=== PATIENT | female | born 1985 | race Caucasian/White ===

== ENCOUNTER 2021-06-18 09:11 | Outpatient (CLI) | payer OTHER, SELFPAY ==
[2021-06-18 10:13] LABS: Beta HCG Quantitative < 2.39 mIU/ML
[2021-06-21 12:12] LABS: Progesterone 59.5 ng/mL (***)
== END 2021-06-18 09:12 | disposition home or self-care (01) ==
LOC: ANHLAB 09:27
DX: Z32.00 Encounter for pregnancy test, result unknown (principal)
CPT/HCPCS: 36415; 84144; 84702

== ENCOUNTER 2022-08-25 15:37 | Inpatient (IN) | payer OTHER, SELFPAY ==
[2022-08-25] VITALS (14 sets, daily range): BP systolic 121–150; BP diastolic 66–95; PULSE 63–79; BMI 31.4
[2022-08-25] MEDS: DINOPROSTONE 10 MG VAG INSERT VAGINAL (18:00)
[2022-08-25] MEDS: LACTATED RINGERS 1,000 ML 125 ML IV CONT (18:10)
[2022-08-25] MEDS: AMPICILLIN 2 GM/NS 100 ML 2 GM/100 ML BAG IVPB (18:10)
[2022-08-25 19:49] LABS: Basophils Percent Auto 0.3 % (0.2-1.2); Eosinophils Absolute Auto 0.1 K/mm3 (0-0.3); Eosinophils Percent Auto 1.3 % (0-4.4); Hematocrit 34.7 % (37.0-47.0); Immature Granulocyte Absolute 0.04 K/mm3 (0.00-0.031); Immature Granulocyte Percent A 0.5 % (0-0.5); Lymphocytes Absolute Auto 1.49 K/mm3 (0.9-3.2); Lymphocytes Percent Auto 19.6 % (18.3-44.2); Mean Corpuscular HGB Conc 34.6 g/dl (32-36); Mean Corpuscular Hemoglobin 30.5 pg (26-34); Mean Corpuscular Volume 88.3 fl (80-100); Mean Platelet Volume 11.7 fl (7.4-10.4); Monocytes Absolute Auto 0.6 K/mm3 (0.1-0.6); Monocytes Percent Auto 7.5 % (2.6-8.5); Neutrophils Absolute Auto 5.4 K/mm3 (1.3-6.7); Neutrophils Percent Auto 70.8 % (45.5-73.1); Platelet Count Result 189 k/mm3 (150-375); Red Blood Count 3.93 M/mm3 (4.2-5.4); Red Cell Distribution Width 13.2 % (11.5-14.5); White Blood Count 7.6 K/mm3 (4.5-10.0)
--- NOTE | 2022-08-25 19:51 | LDADM ---
This patient, Tatiana Waldron, was admitted to Labor/Delivery/Recovery 102 on 08/25/22 at 15:37. Plans for labor, pain management and were discussed with patient. Patient/family oriented to hospital policies and general routines including ID bracelet, bed and alarms, visiting hours, pain management, procedures, bathroom and other care routines, personal items, smoking policy, room service/diet and guest tray routines, security routines, and visiting hours. Patient/Family are encouraged to report perceived risks to care and to ask questions if they do not understand what they are told or what they should do. See OBIX for further documentation.
[2022-08-25 20:05] LABS: Alanine Aminotransferase 31 U/L (6-35); Albumin Level 3.3 g/dL (3.5-5.1); Alkaline Phosphatase 154 U/L (38-126); Anion Gap 7 mmol/L (8-16); Aspartate Amino Transferase 37 U/L (14-36); Bilirubin,Total 0.2 mg/dL (0.2-1.3); Blood Urea Nitrogen 12 mg/dL (7-17); Calcium 8.7 mg/dL (8.4-10.2); Carbon Dioxide 24 mmol/L (22-30); Chloride 99 mmol/L (98-107); Estimated CRCL calculation 124 ml/min; Estimated Glomerular Filt Rate > 60; Glucose 66 mg/dL (65-110); Potassium 3.6 mmol/L (3.4-5.0); Sodium 130 mmol/L (137-145); Uric Acid 4.9 mg/dL (2.5-7.5)
[2022-08-25 20:10] LABS: HIV 1/2 Ab P24 Ag Result Negative (Negative)
--- NOTE | 2022-08-25 22:06 | WPDANESEPP ---
Anes - Eval Pre Procedure Procedure: Labor epidural Date/Time: 08/25/22 22:06 Surgeon: rhonda Preop Diagnosis: Abdominal pain with contractions Pre Op Diagnosis: IOL Patient Data Age: 37 Gender: F Height: 1.7 m Weight: 91 kg Last Vital Signs O2 Del Method Room Air 08/25/22 19:51 Allergies Allergy/AdvReac Type Severity Reaction Status Date / Time No Known Allergies Allergy Unverified 08/04/22 12:24 Home Medications Medication Instructions Recorded Confirmed Type lactobacillus combination no.8 3 3 cell PO DAILY 08/04/22 08/04/22 History billion cell capsule vits no.126-ferrous fum 1 tablet PO DAILY 08/04/22 08/04/22 History 28 mg iron-folic acid 800 mcg tablet (Classic ) sertraline 100 mg tablet 100 mg PO DAILY 08/04/22 08/04/22 History Laboratory Tests 08/25/22 08/25/22 17:00 19:03 WBC 7.6 K/mm3 (4.5-10.0) RBC 3.93 L M/mm3 (4.2-5.4) Hgb 12.0 g/dL (12.0-15.0) Hct 34.7 L % (37.0-47.0) MCV 88.3 fl (80-100) MCH 30.5 pg (26-34) MCHC 34.6 g/dl (32-36) RDW 13.2 % (11.5-14.5) Plt Count 189 k/mm3 (150-375) MPV 11.7 H fl (7.4-10.4) Immature Gran % (Auto) 0.5 % (0-0.5) Neut % (Auto) 70.8 % (45.5-73.1) Lymph % (Auto) 19.6 % (18.3-44.2) [place] % (Auto) 7.5 % (2.6-8.5) Eos % (Auto) 1.3 % (0-4.4) Baso % (Auto) 0.3 % (0.2-1.2) Lymph # (Auto) 1.49 K/mm3 (0.9-3.2) [place] # (Auto) 0.6 K/mm3 (0.1-0.6) Eos # (Auto) 0.1 K/mm3 (0-0.3) Baso # (Auto) 0.0 K/mm3 (0.0-0.1) Abs Immat Gran (auto) 0.04 H K/mm3 (0.00-0.031) Absolute Neuts (auto) 5.4 K/mm3 (1.3-6.7) Absolute Nucleated RBC 0.0 K/mm3 (0.0-0.012) Nucleated RBC % 0.0 % (0.0-0.2) Sodium 130 L mmol/L (137-145) Potassium 3.6 mmol/L (3.4-5.0) Chloride 99 mmol/L (98-107) Carbon Dioxide 24 mmol/L (22-30) Anion Gap 7 L mmol/L (8-16) BUN 12 mg/dL (7-17) Creatinine 0.60 L mg/dL (0.7-1.0) Estim Creat Clear Calc 124 ml/min Estimated GFR > 60 (59 - ) Glucose 66 mg/dL (65-110) Uric Acid 4.9 mg/dL (2.5-7.5) Calcium 8.7 mg/dL (8.4-10.2) Total Bilirubin 0.2 mg/dL (0.2-1.3) AST 37 H U/L (14-36) ALT 31 U/L (6-35) Alkaline Phosphatase 154 H U/L (38-126) Total Protein 6.0 L g/dL (6.3-8.2) Albumin 3.3 L g/dL (3.5-5.1) RPR Pending HIV 1&2 Ab/P24 Ag 4thGn Negative (Negative) : gestational age HCG: positive Patient hx anesthesia problems: none Family hx anesthesia problems: none Results Review: All pre-operative results and documents have been reviewed as part of the pre-operative evaluation. [facility] Past Medical History Medical History Anxiety and depression Gestational hypertension Obesity and not yet delivered Family History Family History Mother Anxiety Mother Depression Mother Hypertension Social History Social History Smoking status: Never smoker Alcohol intake: current Substance use: never Lack of Transportation: No Lack of Food: Never True Current Housing: I Have Housing Concerned About Future Housing: No Difficulty Paying Gas/Electric Bills: No Difficulty Paying for Meds: No Currently Unemployed: No Education: Bachelor's Degree Difficulty w/ Childcare or Family Care: No Spiritual care concerns: No Exam Day of Procedure 08/25/22 22:06 Patient weight: obese Lungs: clear to auscultation Airway: Mallampati scale class II
[2022-08-26] VITALS (111 sets, daily range): BP systolic 87–152; BP diastolic 42–106; PULSE 57–143; RESP 18–20; TEMP 36.1–36.6; O2SAT 94–100
[2022-08-26] MEDS: AMPICILLIN 1 GM/NS 50 ML 1 GM/50 ML BAG IVPB ×4 (00:20→12:24)
[2022-08-26] MEDS: LACTATED RINGERS 1,000 ML 125 ML IV CONT ×3 (02:10→12:25)
[2022-08-26] MEDS: OXYTOCIN 30 UNITS/NS 500 ML 30 UNITS/500 ML BAG IV CONT (06:45)
--- NOTE | 2022-08-26 09:00 | WPDOBADMIT ---
Obstetrics - Admit Note Admission Note: record reviewed. Additions to the history and/or subsequent changes in the physical findings follow. 37 y/o at 39 weeks with surrogate . Elevated bp readings recently, no proteinuria. No headache or visual field change, no abdominal pain. Good movement. Cervidil overnight, and starting to feel some contractions. GBS pos. AVSS NST reactive TOCO: contractions irregularly ABD soft, nontender, gravid, vertex EXT nontender Cervix 3/50/-2. AROM with clear fluid. IUPC placed. A: IUP at term. Gestational HTN, stable. GBS pos. P: Desires induction of labor. S/p Cervidil. Now receiving oxytocin. Ampicillin for GBS. Anticipate .
--- NOTE | 2022-08-26 12:46 | PM.OBPNLAB ---
Pain Control Date/time seen: 08/26/22 12:46 Comments: Comfortable with epidural Pelvic Exam Dilation (cm): 6 Effacement (%): 90 station: -1 Contractions Contraction frequency: 4 Status status: Category l Assessment and Plan Comments: Continue labor.
[2022-08-26 14:01] LABS: Rapid Plasma Reagin Non-Reactive (NonReactive)
[2022-08-26] MEDS: miSOPROStol 200 MCG TABLET 1000 MCG RECTAL (14:08)
--- NOTE | 2022-08-26 14:19 | P.PCNOB_ITS ---
OB - Delivery Note Procedure Delivery date: 08/26/22 Procedure: Induction of labor Events: Chronic Hypertension and Positive Group B Strep (GBS) Induction method: Per Cervidil Protocol Delivery augmentation: Rupture of Membranes and Pitocin Delivery monitor: External FHT, External Uterine and Internal Uterine Route of delivery: Laceration Description: Perineal - 2nd Degree Delivery repair: vicryl (3-0) Specimen: Yes (cord blood) Quantitative Blood Loss (ml): 550 Anesthesia type: Epidural Disposition: PACU Complications: None Narrative: 37 y/o at 39 weeks gestation who presented to the hospital for induction of labor. She received ampicillin for GBS colonization. Cervidil was placed, overnight, withdrawn the following morning. Oxytocin was administered intravenously. Amniotomy was performed with return of clear fluid. She received an epidural for pain control. Her labor progressed and her cervix dilated completely. She pushed with good effort and delivered the infant's head to the perineum, followed by the body. The nose and mouth were bulb suctioned. After a delay, the cord was clamped and cut. The infant was handed off the field. Cord blood was collected. The placenta delivered spontaneously and was grossly normal in appearance. The usual 3 vessel cord was noted. A second degree midline perineal laceration was sustained. This was reapproximated using 3 0 Vicryl in the usual layered fashion. Excellent hemostasis resulted as did excellent reapproximation of the normal anatomy. Needle and instrument counts were correct. Uterine atony was addressed with uterine massage, IV oxytocin, and 1000 mcg Cytotec [place], with good response to treatment. The patient was taken to recovery room in stable condition. The infant went to the nursery in stable condition. I was present and scrubbed for the entire delivery. [place] Baby Date of : 08/26/22 Time of : 13:47 Weeks of gestation at delivery: 39 Infant gender: Female Weight (pounds): 7 Weight (ounces): 15 presentation: vertex position: Left Occiput Posterior Placenta delivery description: Spontaneous and Normal Configuration Cord Vessel Description: 3 Vessels, Nuchal Cord (x2) and Delayed Cord Clamping score one minute: 7 score five minutes: 9
--- NOTE | 2022-08-26 14:22 | PM.OBDSVD ---
DS: Admitting Diagnosis Discharge Date 08/27/22 Admitting Diagnosis IUP at 39 weeks Gestational hypertension GBS colonization DS: Discharge Diagnosis Discharge Diagnosis (1) (normal spontaneous vaginal delivery): Code(s): O80 - Encounter for full-term uncomplicated delivery Status: Acute (2) GBS (group B Streptococcus carrier), +RV culture, currently : Code(s): O99.820 - Streptococcus B carrier state complicating Status: Acute OB - DS: Summary OB Procedures : None OB Procedures Intrapartum: Spontaneous Vag Delivery and GBS prophylaxis OB Procedures: : None Time Spent with Patient Time attestation: Total time spent providing and/or coordinating discharge services: DS: Data Data Completed and Pending Labs on day of discharge: Labs from last 24 hours 08/25/22 08/25/22 08/25/22 19:03 17:00 13:13 WBC 7.6 RBC 3.93 L Hgb 12.0 Hct 34.7 L MCV 88.3 MCH 30.5 MCHC 34.6 RDW 13.2 Plt Count 189 MPV 11.7 H Immature Gran % (Auto) 0.5 Neut % (Auto) 70.8 Lymph % (Auto) 19.6 [place] % (Auto) 7.5 Eos % (Auto) 1.3 Baso % (Auto) 0.3 Lymph # (Auto) 1.49 [place] # (Auto) 0.6 Eos # (Auto) 0.1 Baso # (Auto) 0.0 Abs Immat Gran (auto) 0.04 H Absolute Neuts (auto) 5.4 Absolute Nucleated RBC 0.0 Nucleated RBC % 0.0 Sodium 130 L Potassium 3.6 Chloride 99 Carbon Dioxide 24 Anion Gap 7 L BUN 12 Creatinine 0.60 L Estim Creat Clear Calc 124 Estimated GFR > 60 Glucose 66 Uric Acid 4.9 Calcium 8.7 Total Bilirubin 0.2 AST 37 H ALT 31 Alkaline Phosphatase 154 H Total Protein 6.0 L Albumin 3.3 L RPR Non-reactive HIV 1&2 Ab/P24 Ag 4thGn Negative Blood Type A Positive Antibody Screen Negative Discharge Plan Discharge Attending physician on discharge: Lincoln Barba Consulting providers: Fawad Baig; Tamara Watts Discharging Clinician: Lincoln Barba Patient Disposition: Home, Self-Care Activity: pelvic rest Diet: regular Discharge Instructions: Call or return if temperature above 100.4? F, increased abdominal pain, increased vaginal bleeding or any new problems. Education: Mom and Baby Guide Given to: Mother Follow-Up: Call your delivering provider's office for an appointment to be seen in: 6 Weeks BREAST CARE: * Wear a snug supportive bra. * For engorgement discomfort: Associated with pumping: * Apply warm moist washcloths * Express milk as needed to relieve engorgement * Wear loose clothing * For sore nipples: * Identify correct pump placement * Apply warm moist washcloths before and after pumping * Air dry nipples after pumping * May apply Lansinoh cream to nipples PERINEAL CARE: * Until bleeding stops, use your boubacar bottle after urinating * Change your pad frequently throughout the day * You may take sitz baths several times a day (fill your bathtub with warm water and soak for 20 minutes.) Do NOT bathe in the water * No tub baths until seen by your physician - You may shower ACTIVITY: * Rest as much as possible. * Do not exercise or lift anything heavier than 10 lbs. (such as laundry or other children.) * Avoid stairs or driving as much as possible. * Do not put anything into the vagina. No douching, tampons, or sexual activity until seen by physician. NOTIFY PHYSICIAN IF YOU HAVE ANY QUESTIONS OR IF ANY OF THE FOLLOWING SYMPTOMS OCCUR: * If your perineum becomes red, swollen, or more painful than what you have experienced in the hospital. * If your vaginal bleeding becomes foul smelling. * If your vaginal bleeding becomes more heavy than a period or if your bleeding changes from pink to bright red. However, you may pass an occasional walnut-sized clot once or twice for the first week . * If you experience a
[2022-08-26] MEDS: OXYTOCIN 30 UNITS/NS 500 ML 30 UNITS/500 ML BAG 125 UNITS IV CONT (14:23)
[2022-08-26] MEDS: ACETAMINOPHEN 325 MG TABLET 650 MG PO ×2 (15:31→21:23)
[2022-08-26] MEDS: BENZOCAINE 20% AER SPR (*SP) 56 GM CAN 1 SPRAY TOPICAL (15:32)
[2022-08-26] MEDS: WITCH HAZEL 40 PADS 1 PAD TOPICAL (15:32)
--- NOTE | 2022-08-26 16:33 | OBPPTRN ---
Patient transferred to post room # 284 via wheelchair. Support person present. Oriented to unit, room, information board, rooming in, admission packet and security measures. Patient verbalizes understanding.
[2022-08-26] MEDS: IBUPROFEN 600 MG TABLET PO (19:03)
[2022-08-27] VITALS: BP 135/86; PULSE 79
[2022-08-27] MEDS: IBUPROFEN 600 MG TABLET PO ×3 (00:58→14:36)
[2022-08-27 05:00] VITALS: BP 128/85; PULSE 76; RESP 18; TEMP 36
[2022-08-27] MEDS: ACETAMINOPHEN 325 MG TABLET 650 MG PO ×2 (05:04→11:01)
[2022-08-27 05:55] LABS: Hematocrit 35.4 % (37.0-47.0); Hemoglobin 12.1 g/dL (12.0-15.0)
[2022-08-27] MEDS: SERTRALINE HCL 50 MG TABLET 100 MG PO (08:01)
[2022-08-27] MEDS: DOCUSATE SODIUM 100 MG CAPSULE PO (08:01)
[2022-08-27] MEDS: MULTIVIT/MIN/PREN/FOL AC/IRON TABLET 1 TAB PO (08:01)
[2022-08-27 08:20] VITALS: BP 134/92; PULSE 72; RESP 16; TEMP 36.8; O2SAT 100
--- NOTE | 2022-08-27 09:32 | PM.OBPNVD ---
OB - PN: Subj Subjective Date/time seen: 08/27/22 09:32 Patient comments: no complaints and pain well controlled baby status: doing well and nursing well OB - PN: Obj Data Labs 08/27/22 05:03 08/25/22 17:00 Labs: Laboratory Results - last 24 hr 08/25/22 08/25/22 08/27/22 13:13 17:00 05:03 Hgb 12.1 Hct 35.4 L RPR Non-reactive Blood Type A Positive Antibody Screen Negative OB - PN A/P Plan day: 1 Plan: routine care, discharge home and follow up 6 weeks Time Spent With Patient Time: Total time spent is greater than 50% in coordination of care (as documented) at patient's floor/unit and/or counseling patient: Time with patient: less than 15 minutes Exam Const: General: cooperative, healthy appearing and comfortable Nutritional Appearance: average body habitus Orientation/consciousness: oriented to person, oriented to place and oriented to time HENMT: Head: normal to inspection Resp: Effort & Inspection: normal respiratory effort GI: Inspection: normal to inspection (Fundus firm below the umbilicus)
[2022-08-27 12:24] VITALS: BP 132/89; PULSE 81; RESP 18; TEMP 37.2; O2SAT 100
--- NOTE | 2022-08-27 13:00 | WPDANLDPN2 ---
Anes-Prog Note L&D Date/Time: 08/27/22 13:00 Neuro status: Neuro function grossly intact. Vital Signs: Last Vital Signs Temp 37.2 C 08/27/22 12:24 Pulse 81 08/27/22 12:24 Resp 18 08/27/22 12:24 BP 132/89 08/27/22 12:24 Pulse Ox 100 08/27/22 12:24 O2 Del Method Room Air 08/25/22 19:51 Pain score (VAS): 0 I/O: Intake & Output 08/26/22 08/27/22 08/27/22 23:59 07:59 15:59 Intake Total 740 Output Total 150 Balance 590 Patient feedback: Patient satisfied with anesthetic care.
[2022-08-27] MEDS: WITCH HAZEL 40 PADS 1 PAD TOPICAL (14:37)
--- NOTE | 2022-08-27 14:39 | PC.NURSE ---
pt declines follow-up visit.
== END 2022-08-27 15:33 | disposition home or self-care (01) | DRG 807 ==
LOC: ANHLDR 08-26 14:24 → ANHOB2 08-27 14:42 → ANHLDR 08-31 07:44 → ANHOB2 08-31 07:44
PROVIDERS: Admitting Provider Obstetrics & Gynecology; Visit Provider Obstetrics & Gynecology
DX: O99.824 Streptococcus B carrier state complicating childbirth (principal); Z37.0 Single live birth; O13.4 Gestational [pregnancy-induced] hypertension without significant proteinuria, complicating childbirth; O70.1 Second degree perineal laceration during delivery; O69.81X0 Labor and delivery complicated by cord around neck, without compression, not applicable or unspecified; Z3A.39 39 weeks gestation of pregnancy
CPT/HCPCS: 36415; 80053; 84550; 85014; 85018; 85025; 86592; 86703; 86850; 86900; 86901; A9270; G0432; J0290; J2590; J2795; J7120